=== PATIENT | female | born 1950 | race Caucasian/White ===

== ENCOUNTER 2019-10-29 04:53 | Inpatient (IN) ==
[2019-10-22 18:04] LABS: Appearance,Urine HAZY; Bilirubin,Urine NEG (NEG); Color,Urine YELLOW; Culture Indicated,Urine NO; Glucose,Urine (UA) NEGATIVE (NEG); Ketones,Urine NEG (NEG); Leukocyte Esterase,Urine NEG /uL (NEG); Nitrate,Urine NEG (NEG); Protein,Urine NEG (NEG); Urine Blood NEG mg/dL (<0.03); Urobilinogen,Urine NEG (NEG)
[2019-10-22 20:52] LABS: Blood Urea Nitrogen 18 mg/dl (8-23); Calcium 10.4 mg/dl (8.6-10.4); Carbon Dioxide 26 mmol/L (22-30); Chloride 103 mmol/L (96-108); Glomerular Filtration Rate 35; Glucose 69 mg/dL (70-105)
[2019-10-22 20:57] LABS: Estimated Average Glucose(eAG) 134 mg/dL; Hemoglobin A1C 6.3 % HGB (4.0-6.0)
[2019-10-22 20:59] LABS: Basophils # (Auto) 0 K/mcL (0.0-0.3); Basophils % (Auto) 0.6 % (0.0-2.0); Eosinophils # (Auto) 0.2 K/mcL (0.0-0.7); Eosinophils % (Auto) 3.7 % (0.0-7.0); Granulocytes % (Auto) 43.3 % (38.0-78.0); Hematocrit 33.8 % (36.0-48.0); Hemoglobin 11.2 g/dL (12.0-15.0); Lymphocytes % (Auto) 40.5 % (15.5-49.0); Mean Cell Volume 90.4 fL (80.0-100.0); Mean Corpuscular HGB Conc 33.2 g/dL (31.0-36.0); Mean Platelet Volume 7.6 fL (7.4-10.4); Monocytes # (Auto) 0.6 K/mcL (0.1-0.9); Monocytes % (Auto) 11.9 % (1.0-12.0); Platelet Count 326 K/mcL (140-440); RBC 3.74 M/mcL (4.00-5.20); Red Cell Distribution Width 15.7 % (11.5-14.5); WBC 4.9 K/mcL (4.5-11.0)
[2019-10-29] MEDS ORDERED: IPRATROPIUM/ALBUTEROL 3 ML AMPUL.NEB NEB PRN ×2 (05:00→09:43)
[2019-10-29] MEDS ORDERED: SCOPOLAMINE 1 PATCH PATCH TOPICAL PRN (05:00)
[2019-10-29] MEDS ORDERED: CELECOXIB 200 MG CAPSULE PO SCH (06:00)
[2019-10-29] MEDS ORDERED: oxyCODONE 10 MG TAB.ER.12H PO SCH (06:00)
[2019-10-29] MEDS ORDERED: ceFAZolin 2 GM in DEXTROSE 5% IN WATER 50 ML IV SCH (06:00)
[2019-10-29] MEDS ORDERED: 0.9 % SODIUM CHLORIDE 9 ML, KETOROLAC 30 MG, ROPIVACAINE HCL/PF 49.5 ML, EPINEPHrine 0.... IJ SCH (06:00)
[2019-10-29] MEDS ORDERED: PREGABALIN 75 MG CAPSULE PO SCH (06:00)
[2019-10-29] MEDS ORDERED: ONDANSETRON 4 MG/2 ML VIAL IV ONE (07:45)
[2019-10-29] MEDS ORDERED: KETAMINE 100 MG/ML ML IV ONE (07:45)
[2019-10-29] MEDS ORDERED: LIDOCAINE HCL/PF 100 MG/5 ML SYRINGE IV ONE (07:45)
[2019-10-29] MEDS ORDERED: ROPIVACAINE HCL/PF 30 ML VIAL IJ ONE (07:45)
[2019-10-29] MEDS ORDERED: GLYCOPYRROLATE 0.2 MG/ML VIAL IV ONE (07:45)
[2019-10-29] MEDS ORDERED: TRANEXAMIC ACID 1,000 MG/10 ML VIAL IV ONE ×2 (07:45→09:21)
[2019-10-29] MEDS ORDERED: PROPOFOL 200 MG/20 ML VIAL IV ONE (07:45)
[2019-10-29] MEDS ORDERED: PHENYLEPHRINE 10 MG/ML VIAL IV ONE (07:45)
[2019-10-29] MEDS ORDERED: DEXAMETHASONE 10 MG/ML VIAL IV ONE (07:45)
[2019-10-29] MEDS ORDERED: FLEETS ADULT ENEMA PR PRN (09:21)
[2019-10-29] MEDS ORDERED: ONDANSETRON 4 MG/2 ML VIAL IV PRN ×2 (09:21→09:43)
[2019-10-29] MEDS ORDERED: BENZOCAINE/MENTHOL 1 LOZENGE PO PRN (09:21)
[2019-10-29] MEDS ORDERED: HYDROmorphone 2 MG/ML VIAL IV PRN (09:21)
[2019-10-29] MEDS ORDERED: POLYETHYLENE GLYCOL 3350 17 GM PACKET PO PRN (09:21)
[2019-10-29] MEDS ORDERED: MAGNESIUM HYDROXIDE 30 ML ORAL.SUSP PO PRN (09:21)
[2019-10-29] MEDS ORDERED: BISACODYL 10 MG SUPP.RECT PR PRN (09:21)
--- NOTE | 2019-10-29 09:21 | Brief Operative Note ---
Date of procedure: 10/29/19 Pre-op diagnosis: R knee DJD Post-op diagnosis: same Procedure: Right robotic assisted total knee arthroplasty Grafts/Implants: Yes (Crook Triathlon 2 CR femur, 2 tibia, 31 patella, 10mm insert) Anesthesia: spinal, GLMA Findings: arthritis Complications: none Surgeon: Maximo Reyes Associate Software Engineer: Khanh Olmedo Estimated blood loss (cc): 30 Specimens Removed/Pathology: none sent Condition: stable Disposition: PACU
[2019-10-29] MEDS ORDERED: METHYLCELLULOSE 500 MG TABLET PO PRN (09:24)
--- NOTE | 2019-10-29 09:39 | Operative Note ---
DATE OF OPERATION: 10/29/2019 PREOPERATIVE DIAGNOSIS: Right knee severe osteoarthritis. POSTOPERATIVE DIAGNOSIS: Right knee severe osteoarthritis. PROCEDURE PERFORMED: Right robotic-assisted total knee arthroplasty placing a Lorrie Triathlon cruciate retaining size 2 femoral component, size 2 tibial baseplate, a 10 mm X3 tibial insert with a 31 mm patellar button. SURGEON: Maximo Reyes M.D. CUSTODIAL SUPERVISOR: Sage Olmedo PA-C. The PA's assistance was required for the safe and efficient completion of the entire case. This provider's expertise and technical skill were required throughout the case. The PA assisted with preoperative coordination, intraoperative retraction, wound closure, dressing and splint application, as well as postoperative documentation and care coordination. ANESTHESIA: Spinal plus general. DRAINS: None. SPECIMENS: Bone cuts which were discarded. BLOOD LOSS: 50 mL. COMPLICATIONS: None. POSTOPERATIVE CONDITION: Stable. INDICATIONS FOR SURGERY: This is a 69-year-old female with longstanding, progressive worsening right knee pain. Radiographs showed advanced [id number] osteoarthritis. FINDINGS AT SURGERY: Advanced arthritis. Post implantation showed good limb alignment, joint stability, and patellar tracking. PROCEDURE IN DETAIL: The patient had been seen preoperatively. Informed consent had been obtained after discussion of risks and benefits of surgery. Risks including, but not limited to, bleeding, possibly requiring transfusion; infection, possibly requiring implant removal and prolonged IV antibiotics; injury to nerves, blood vessels, and other surrounding structures; anesthetic risks; incomplete or no resolution of symptoms; swelling; stiffness; pain; instability; DVT and pulmonary embolus risks; and the possibility of needing further revision joint surgery. Patient understood and wished to proceed. Correct operative site was marked in preoperative holding, and patient was taken to the operating room and general anesthesia was induced. The right lower extremity was then prepped and draped in normal sterile fashion, and a timeout was performed verifying patient name, operative site, and plan. Ioban was placed over all skin surfaces and an Esmarch was used to exsanguinate the extremity, and tourniquet was inflated to 300 mmHg. A midline incision was made with a scalpel through skin and subcutaneous tissue, then IrriSept was irrigated and a medial parapatellar arthrotomy was made, and then a subperiosteal exposure was done of the anterior medial tibia. Anterior horns of the menisci were removed, as well as retropatellar fat pad. ACL was transected. We then did a resection of the patella freehand, premeasuring thickness and then placing a cut protector after. We then placed our femoral and tibial checkpoints, and then a scalpel was used to make two stab incisions over the femur and two over the tibia and bicortical pins placed. The arrays were connected. The green probe was used to identify medial and lateral malleoli and double-checks were made with the green probe of the femoral and tibial check points. Blue probe was then used to do our mapping. A rongeur was used to remove osteophytes. We then used the spoons to check our flexion-extension gaps and made adjustments to get as close to 17 mm gaps on all four numbers as possible. Once this was completed, we then used the robotic arm to make our bone cuts. The tibia was prepared with the boss reamer and keel punch and externally rotated as bone coverage would allow. A keeled tibial trial was placed, and the femur was elevated. Curved osteotome and curet were used to remove posterior osteophytes. Femoral trial was then impacted and pinned into place. This was placed flush along the lateral cortex of the femur and then peg holes were drilled. A 9 insert trial was placed and then the knee was taken into extension. We then prepared the patella medializing maximally and sized this to a 31 patella. We then checked the patellar tracking and it was stable. We then removed trial implants. Definitive implants were opened while the joint was irrigated with IrriSept. After waiting a minute, we pulse lavaged with saline. Antibiotic cement was mixed and then the cancellous bone surfaces were dried with the CO2 gun. We then cemented the tibia, followed by the femur. Excess cement was removed, and the trial insert was placed, and the knee was taken into extension. The patella was then cemented. After excess cement was removed, we filled the joint with IrriSept. The tibial and femoral check points were removed. The extension was checked and then we removed our arrays and our pins. We injected pain cocktail in the pericapsular and subcutaneous tissues. Once cement had fully hardened, we flexed the knee up. We removed the insert trial, injected pain cocktail in the posteromedial capsule. We then opened a 10 mm X3 insert, and this was carefully impacted and verified to be fully seated. The knee was then placed in extension and filled with IrriSept. After a minute it was copiously pulse lavaged with saline. We then flexed the knee to 45 degrees of flexion. A #2 FiberWire [id number] was used around the superior quadrant of the patella, #1 Vicryl [id number] around the inferior quadrant. Running #1 Vicryl was used for patellar tendon and quad tendon. Final IrriSept irrigation was done, after a minute final pulse lavage, and then 2-0 Monocryl was used for subcutaneous and agus for skin. Xeroform and sterile dressing were applied. Tourniquet was released. The patient was awakened, extubated, and transferred to recovery in stable condition. [email or web address] Job ID: [id number] Doc ID: [id number] Maximo Reyes MD
[2019-10-29] MEDS ORDERED: MEPERIDINE 25 MG/ML SYRINGE IV PRN (09:43)
[2019-10-29] MEDS ORDERED: fentaNYL 100 MCG/2 ML VIAL IV PRN (09:43)
[2019-10-29] MEDS ORDERED: METHOCARBAMOL 1,000 MG/10 ML VIAL IV PRN (09:43)
[2019-10-29] MEDS ORDERED: ACETAMINOPHEN 1,000 MG/100 ML BOTTLE IV ONE (09:43)
[2019-10-29] MEDS ORDERED: LACTATED RINGERS 1,000 ML IV SCH (09:45)
--- NOTE | 2019-10-29 10:22 | XRay Report ---
CLINICAL INFORMATION: Postsurgical follow-up TECHNIQUE: AP, lateral, patellar views COMPARISON: None. FINDINGS: Status post right total knee arthroplasty. Femoral and tibial components are in anatomic positions. There is postsurgical soft tissue and intra-articular gas. There are skin agus anteriorly IMPRESSION: Previous right total knee arthroplasty Interpreted and Authenticated by: Frantz Berrios 10/29/19
[2019-10-29] MEDS: 0.9 % SODIUM CHLORIDE 1,000 ML IV SCH ×2 (10:29→19:32)
[2019-10-29] MEDS: KETOROLAC 15 MG/ML VIAL IV SCH ×3 (11:43→23:26)
[2019-10-29] MEDS: 0.9 % SODIUM CHLORIDE 10 ML SYRINGE IV SCH ×2 (13:57→21:18)
--- NOTE | 2019-10-29 14:57 | Discharge Summary ---
Providers - Providers Patient information: Note initiated : 10/29/19 at 2:53 pm Service Date, if different from initiated Date: [] Patient: Palmira Mcneil 69 y/o F admitted on 10/29/19 for Right Total Knee Arthroplasty Hari . Chief Complaint: [] Discharge date: 10/30/19 Hospitalization Hospital Course: Pt was admitted for R TKA. Pt underwent the procedure on the day of admission. Pt was transferred to the floor for IV pain meds, IV abx and PT. Pt discharged on post-op day 1. Pt will take ASA for DVT prophylaxis. f/u in 2 weeks at [facility]. Discharge diagnosis: R knee OA Exam - Exam Weight bearing status: as tolerated Ortho Discharge - TKA - Patient Instructions Diet: Regular Diet Activity: activity as tolerated, weight bearing as tolerated Total Knee Protocol: For Total Knee: Start ROM NICK with stationary bike or rocking chair. Work on gaining full extension of knee. Posterior dislocation precautions provided. Hip abductor strengthening and gait training instructions provided. Apply Cryocuff as instructed. Dressing Care: May shower in 2 days - Follow Up Plan Disposition: Home, Self-Care Prognosis: Good Rehab Potential: Good Overall status at discharge: patient is progressing back to baseline - Orders For Discharge Prescriptions: Aspirin 81 mg PO BID #30 tab.chew Transmission Status: Pending to [facility] HYDROcodone/ACETAMINOPHEN [Hydrocodone-Acetamin 10-325 mg] 1 - 2 tab PO Q4-6HP PRN #90 tab PRN Reason: Pain Prescription Printed Pending Studies Resuscitation Status Full Code Diet Consistent Carbohydrate Diet Start SatOct 29 1105 Celecoxib (Celebrex) 200 mg PO PREOP JOVANNY Stop: 10/29/19 16:00 Last Admin: 10/29/19 05:21 Dose: 200 mg Documented by: AJOHNSON Sodium Chloride 9 ml/Ketorolac Tromethamine 30 mg/Ropivacaine 49.5 ml/Epinephrine HCl 0.5 mg 0 ml IJ ONCE JOVANNY Stop: 10/29/19 16:00 Last Admin: 10/29/19 08:57 Dose: 100 ml Documented by: EMERITA Cefazolin Sodium 2 gm/ (Dextrose) 50 mls @ 100 mls/hr IV PREOP JOVANNY Stop: 10/29/19 16:00 Last Admin: 10/29/19 07:15 Dose: 100 mls/hr Documented by: BUCKDanisha Sodium Chloride (Sodium Chloride 0.9%) 1,000 mls @ 100 mls/hr IV .Q10H [facility] Last Admin: 10/29/19 10:29 Dose: 100 mls/hr Documented by: ARIANA Ketorolac Tromethamine (Toradol) 15 mg IV Q6 JOVANNY Stop: 10/31/19 06:01 Last Admin: 10/29/19 11:43 Dose: 15 mg Documented by: ARIANA Oxycodone HCl (Oxycontin) 10 mg PO PREOP JOVANNY Stop: 10/29/19 16:00 Last Admin: 10/29/19 05:21 Dose: 10 mg Documented by: TIM Pregabalin (Lyrica) 75 mg PO PREOP JOVANNY Stop: 10/29/19 16:00 Last Admin: 10/29/19 05:21 Dose: 75 mg Documented by: TIM Sodium Chloride (Saline Flush) 10 ml IV Q8 [facility] Last Admin: 10/29/19 13:57 Dose: Not Given Documented by: ARIANA
[2019-10-29] MEDS: ceFAZolin 1 GM VIAL IV SCH ×2 (15:08→23:26)
[2019-10-29] MEDS: oxyCODONE/APAP 5/325MG TABLET PO PRN (16:34)
[2019-10-29] MEDS: DOCUSATE SODIUM 100 MG CAPSULE PO SCH (20:41)
[2019-10-29] MEDS: ASPIRIN 81 MG TAB.CHEW PO SCH (20:41)
[2019-10-29] MEDS ORDERED: SENNOSIDES 1 TABLET PO SCH (21:00)
[2019-10-30] MEDS: 0.9 % SODIUM CHLORIDE 1,000 ML IV SCH (04:27)
[2019-10-30] MEDS: 0.9 % SODIUM CHLORIDE 10 ML SYRINGE IV SCH (05:27)
[2019-10-30] MEDS: KETOROLAC 15 MG/ML VIAL IV SCH ×2 (05:33→12:01)
[2019-10-30] MEDS: ASPIRIN 81 MG TAB.CHEW PO SCH (08:25)
[2019-10-30] MEDS: DOCUSATE SODIUM 100 MG CAPSULE PO SCH (08:25)
[2019-10-30] MEDS ORDERED: MULTIVIT,THER IRON,CA,FA & MIN 1 TABLET PO SCH (09:00)
--- NOTE | 2019-10-30 09:44 | Orthopedic Progress Note ---
Subjective Patient information: Note initiated : 10/30/19 at 9:42 am Service Date, if different from initiated Date: [] Patient: Palmira Mcneil 69 y/o F admitted on 10/29/19 for Right Total Knee Arthroplasty Hari . Chief Complaint: [] Principal diagnosis: s/p total knee Interval history: notices popping with deep flexion Objective Vital signs: Vital Signs Temp Pulse Resp BP Pulse Ox 10/30/19 08:00 98.2 F 81 14 108/58 99 10/30/19 04:00 97.2 F 71 14 124/65 98 10/30/19 00:00 98.0 F 66 16 128/65 96 10/29/19 18:42 97.6 F 66 16 133/68 98 10/29/19 16:00 96.7 F L 66 12 122/64 96 10/29/19 12:30 56 L 118/62 98 10/29/19 12:00 56 L 118/59 97 10/29/19 11:31 65 115/61 90 10/29/19 11:15 64 116/62 94 10/29/19 11:00 66 118/63 91 10/29/19 10:45 69 122/62 95 10/29/19 10:30 72 18 119/63 92 10/29/19 10:20 98.2 F 75 12 107/53 97 10/29/19 10:15 75 11 L 117/52 98 10/29/19 10:10 80 12 122/52 96 10/29/19 10:05 80 14 136/57 96 10/29/19 10:00 87 13 132/58 97 10/29/19 09:55 87 11 L 121/53 99 10/29/19 09:50 93 H 11 L 126/49 97 10/29/19 09:45 94 H 18 124/55 92 Intake and Output 10/29/19 10/30/19 10/30/19 21:59 05:59 13:59 Intake Total 1999 240 Output Total 900 1600 Balance 1100 -1600 240 Intake: Oral 1999 240 Output: Void Amount 900 1600 Other: Meal Dinner Breakfast Percent of Meal Consumed 75% 100% Feeding Ability Independent Independent Urine Appearance Clear Clear Urine Color Pale Pale Bright Yellow Urine Odor Normal Normal # Voids 1 Weight 152 lb 8 oz Intake & Output: Intake & Output 12/11/0510/30/19 10/30/19 21:59 05:59 13:59 Intake Total 1999 240 Output Total 900 1600 Balance 1100 -1600 240 Weight 152 lb 8 oz Intake: Oral 1999 240 Output: Void Amount 900 1600 Other: Meal Dinner Breakfast Percent of Meal Consumed 75% 100% Feeding Ability Independent Independent Urine Appearance Clear Clear Urine Color Pale Pale Bright Yellow Urine Odor Normal Normal # Voids 1 Dressing: Yes clean, Yes dry, Yes intact Neurological exam IM: Yes oriented X3, Yes neurovascular intact Additional Comments: palpable and audible popping lateral to patella with deep flexion - Labs CBC & BMP: 10/22/19 16:02 10/22/19 16:02 Labs: 10/22/19 16:02 Hgb 11.2 L Hct 33.8 L Assessment and Plan (1) S/P total knee arthroplasty POD#1-pain controlled, popping I think coming from soft tissue -stable for d/c home Status: Acute
[2019-10-30] MEDS: oxyCODONE/APAP 5/325MG TABLET PO PRN (12:00)
== END 2019-10-30 12:05 | disposition home or self-care (01) | DRG 470 ==
LOC: MEDSUR 04:53
PROVIDERS: ADMIT Orthopaedic Surgery; ATTEND Orthopaedic Surgery